=== PATIENT | female | born 1960 | race American Indian/Alaskan Native ===

== ENCOUNTER 2016-07-11 13:58 | Emergency (ER) | payer MEDICARE ==
[2016-07-11] MEDS ORDERED: MOTRIN ONE (15:04)
[2016-07-11] MEDS ORDERED: MOTRIN PO ONE (15:10)
[2016-07-11 18:11] VITALS: BP 140/88
[2016-07-11] MEDS ORDERED: TYLENOL/CODEINE PO ONE (18:13)
--- NOTE | 2016-07-11 18:13 | Emergency Department Report ---
HPI - General Chief Complaint: Fever Time Seen by Provider: 07/11/16 17:44 - HPI HPI: Patient is a 55-year-old female who presents to ED complaining of fever cough and congestion times the past 2 days. Patient states 2 days ago she began to feel congested. She admits brownish sputum productive cough. Patient states history of blood pressure and COPD. she states takes blood pressure medication but otherwise no other medical conditions. She states she has intermittent nausea but no vomiting. Patient denies abdominal pain, shortness of breath, headache, dizziness, diarrhea, vomiting. ED Past Medical Hx - Past Medical History Previous Medical History?: Yes Hx Hypertension: Yes - Surgical History Past Surgical History?: No - Social History Smoking Status: Current Every Day Smoker Substance Use Type: None - Medications Home Medications: Home Medications Medication Instructions Recorded Confirmed Last Taken Type Acetamin/Codeine 120-12Mg/5 ml 5 ml PO TID PRN #50 ml 07/11/16 Unknown Rx [Tylenol/Codeine] Azithromycin [Zithromax TAB] 500 mg PO QDAY #6 tablet 07/11/16 Unknown Rx Benzonatate [Tessalon Perles] 100 mg PO Q8HR #24 capsule 07/11/16 Unknown Rx Ibuprofen [Motrin] 400 mg PO Q8H PRN #30 tablet 07/11/16 Unknown Rx ED Review of Systems ROS: Stated complaint: FLU LIKE SYMPTOMS Other details as noted in HPI Constitutional: denies: chills, fever Eyes: denies: eye pain, eye discharge, vision change ENT: denies: ear pain, throat pain Respiratory: cough. denies: shortness of breath, SOB with exertion, SOB at rest , wheezing Cardiovascular: denies: chest pain, palpitations Endocrine: no symptoms reported Gastrointestinal: nausea. denies: abdominal pain, vomiting, diarrhea, constipation Genitourinary: denies: urgency, dysuria, discharge Musculoskeletal: denies: back pain, joint swelling, arthralgia Skin: denies: rash, lesions Neurological: denies: headache, weakness, numbness, paresthesias, confusion, abnormal gait Psychiatric: denies: anxiety, depression Hematological/Lymphatic: denies: easy bleeding, easy bruising Physical Exam - Physical Exam Vital Signs: Vital Signs 07/11/16 15:02 Temperature 103.1 F H Pulse Rate 90 Respiratory 20 Rate Blood Pressure 135/75 O2 Sat by Pulse 99 Oximetry Physical Exam: GENERAL: Alert and oriented x3, no apparent distress, Normal Gait, atraumatic. HEAD: Head is normocephalic and a-traumatic. EYES: Extra ocular muscles are intact. Pupils are equal, round, and reactive to light and accommodation. EARS: symetrical, atraumatic, non tender, ear canal clear and moderate cerumen, tympanic membrance non inflamed. gross auditory nml bilaterally. NOSE: Nose symetrical, Nontender,Nares appeared normal. MOUTH:Mouth is well hydrated and without lesions. Tonsils nonerythematous or swollen, Uvula midline, Tongue not elevated. Mucous membranes are moist. Posterior pharynx clear, no exudate or lesions. Patent airways. NECK: Supple. Non edematous, No carotid bruits. No lymphadenopathy or thyromegaly. LUNGS: Symetrical with respiration, No wheezing, no rales or crackles, adventitious lung sounds at lower lung bases bilaterally HEART: S1, S2 present, regular rate and rhythm without murmur, no rubs, no gallops. ABDOMEN: No organomegaly was noted,Positive bowel sounds, soft, and non- distended. . Nontender to palpation on all Quadrants, NO CVA tenderness. EXTREMITIES/MUSCULOSKELETAL: No cyanosis, clubbing, rash, lesions or edema. Full ROM bilaterally. UE/LE Pulses 2+ bilaterally. NEUROLOGIC: No focal Deficit, Cranial nerves II through XII are grossly intact. No loss of sensation, PSYCHIATRIC: Mood is congruent with affect, denies suicidal or homicidal ideations. SKIN: Warm and dry, No lesions, No ulceration or induration present. ED Course Vital Signs 07/11/16 15:02 Temperature 103.1 F H Pulse Rate 90 Respiratory 20 Rate Blood Pressure 135/75 O2 Sat by Pulse 99 Oximetry ED Medical Decision Making - Lab Data Result diagrams: 07/11/16 18:37 07/11/16 18:37 - Medical Decision Making 55-year-old presents with ED course: CBC, CMP, urinalysis, chest x-ray are ordered. Rapid influenza test done Patient received 10mL of Tylenol with Codeine. Patient received 800 mg of Motrin. Fever reduced. Chemistry lab called stating they ran out of Flu Kits and flu test could not be run. Urinalysis shows. CBC CMP within normal limits. Vital signs are stable. O2 sat 100%. Patient is in no respiratory distress. chest x-ray shows COPD with central peribronchial cuffing, patchiness segmental atelectasis in right lower lung Impressions: Minimal atelectasis, mild bronchitis. Discussed result findings with patient. Discussed with patient importance of hydration. To take daily vitamins. Discussed the patient to follow up with primary care physician. Discussed patient to be discharged home on Tessalon. For cough, Tylenol with codeine, azithromycin for infection prophylaxis and Motrin for pain. Stress the importance of follow-up. Referrals as given. Critical care attestation.: If time is entered above; I have spent that time in minutes in the direct care of this critically ill patient, excluding procedure time. ED Disposition Clinical Impression: Bronchitis, History of COPD Disposition: DISCHARGED TO HOME OR SELFCARE Is pt being admited?: No Does the pt Need Aspirin: No Condition: Stable Instructions: Acute Bronchitis (ED), Chronic Bronchitis (ED) Additional Instructions: Follow-up with her primary care physician. take [id number] Robitussin, Tylenol for cough and fever Prescriptions: Acetamin/Codeine 120-12Mg/5 ml [Tylenol/Codeine] 5 ml PO TID PRN #50 ml PRN Reason: Pain Azithromycin [Zithromax TAB] 500 mg PO QDAY #6 tablet Benzonatate [Tessalon Perles] 100 mg PO Q8HR #24 capsule Ibuprofen [Motrin] 400 mg PO Q8H PRN #30 tablet PRN Reason: Pain Referrals: PRIMARY CARE, [Primary Care Provider] - 3-5 Days REBEKAH ROBISON MD [Referring] - 3-5 Days RIKA VALENTE MD [Referring] - 3-5 Days [facility] [Outside] - 3-5 Days [facility] [Outside] - 3-5 Days [facility] [Outside] - 3-5 Days [facility] [Outside] - 3-5 Days Forms: Accompanied Note, Work/School Release Form(ED) Time of Disposition: 19:32
[2016-07-11 18:33] LABS: Bilirubin,Urine NEG (Negative); Blood,Urine SM (Negative); Ketones,Urine NEG (Negative); Leukocyte Esterase,Urine NEG (Negative); Mucus,Urine FEW /HPF; Nitrite,Urine NEG (Negative); Protein,Urine <15 mg/dL mg/dL (Negative); Urobilinogen,Urine < 2.0 mg/dL (<2.0)
[2016-07-11 19:00] LABS: Basophils % (Auto) 0.9 % (0.0-1.8); Eosinophils % (Auto) 0.9 % (0.0-4.3); Hematocrit 41.9 % (30.3-42.9); Hemoglobin 13.5 gm/dl (10.1-14.3); Mean Corpuscular HGB Conc 32 % (30-34); Mean Corpuscular Hemoglobin 26 pg (28-32); Mean Corpuscular Volume 81 fl (79-97); Platelet Count 183 K/mm3 (140-440); Red Blood Count 5.19 M/mm3 (3.65-5.03); Red Cell Distribution Width 13.6 % (13.2-15.2)
--- NOTE | 2016-07-11 19:02 | XRay Report ---
FINAL REPORT PROCEDURE: XR CHEST ROUTINE 2V TECHNIQUE: Two view PA lateral chest HISTORY: productivecough/fever COMPARISON: No prior studies are available for comparison. FINDINGS: Heart is not enlarged. COPD with central peribronchial cuffing. Patchy subsegmental atelectasis in the right lower lung zone. IMPRESSION: Possible mild bronchitis. Minimal atelectasis. No evidence of acute consolidative pneumonia or effusion.
[2016-07-11 19:08] LABS: Alanine Aminotransferase 21 units/L (7-56); Albumin 3.9 g/dL (3.9-5); Albumin/Globulin Ratio 1.2 %; Alkaline Phosphatase 61 units/L (35-129); Anion Gap 18 mmol/L; BUN/Creatinine Ratio 14.44; Bilirubin,Total 0.2 mg/dL (0.1-1.2); Blood Urea Nitrogen 13 mg/dL (7-17); Calcium 8.8 mg/dL (8.4-10.2); Carbon Dioxide 27 mmol/L (22-30); Chloride 95.6 mmol/L (98-107); Glucose 120 mg/dL (65-100); Potassium 4.1 mmol/L (3.6-5.0); Sodium 136 mmol/L (137-145); Total Protein 7.2 g/dL (6.3-8.2)
== END 2016-07-11 20:18 | disposition home or self-care (01) ==
LOC: ED 13:58
DX: J40 Bronchitis, not specified as acute or chronic (principal); J44.9 Chronic obstructive pulmonary disease, unspecified; I10 Essential (primary) hypertension; F17.200 Nicotine dependence, unspecified, uncomplicated
CPT/HCPCS: 36415; 71020; 80053; 81001; 84703; 85025; 87400

== ENCOUNTER 2017-12-17 17:00 | Emergency (ER) | payer MEDICARE ==
[2017-12-17] MEDS ORDERED: MOTRIN PO ONE (21:10)
--- NOTE | 2017-12-17 21:10 | Emergency Department Report ---
ED ENT HPI - General Chief complaint: Dental/Oral Stated complaint: SORE THROAT Time Seen by Provider: 12/17/17 21:05 Source: patient Mode of arrival: Ambulatory Limitations: No Limitations - Related Data Previous Rx's Medication Instructions Recorded Last Taken Type Acetamin/Codeine 120-12Mg/5 ml 5 ml PO TID PRN #50 ml 07/11/16 Unknown Rx [Tylenol/Codeine] Azithromycin [Zithromax TAB] 500 mg PO QDAY #6 tablet 07/11/16 Unknown Rx Benzonatate [Tessalon Perles] 100 mg PO Q8HR #24 capsule 07/11/16 Unknown Rx Ibuprofen [Motrin] 400 mg PO Q8H PRN #30 tablet 07/11/16 Unknown Rx Allergies Allergy/AdvReac Type Severity Reaction Status Date / Time tetracycline AdvReac Hives Verified 07/11/16 15:10 ED Dental HPI - General Chief complaint: Dental/Oral Stated complaint: SORE THROAT Time Seen by Provider: 12/17/17 21:05 Source: patient Mode of arrival: Ambulatory Limitations: No Limitations - Related Data Previous Rx's Medication Instructions Recorded Last Taken Type Acetamin/Codeine 120-12Mg/5 ml 5 ml PO TID PRN #50 ml 07/11/16 Unknown Rx [Tylenol/Codeine] Azithromycin [Zithromax TAB] 500 mg PO QDAY #6 tablet 07/11/16 Unknown Rx Benzonatate [Tessalon Perles] 100 mg PO Q8HR #24 capsule 07/11/16 Unknown Rx Ibuprofen [Motrin] 400 mg PO Q8H PRN #30 tablet 07/11/16 Unknown Rx Allergies Allergy/AdvReac Type Severity Reaction Status Date / Time tetracycline AdvReac Hives Verified 07/11/16 15:10 ED Review of Systems ROS: Stated complaint: SORE THROAT Other details as noted in HPI ED Past Medical Hx - Past Medical History Previous Medical History?: Yes Hx Hypertension: Yes - Surgical History Past Surgical History?: No - Social History Smoking Status: Current Every Day Smoker Substance Use Type: None - Medications Home Medications: Home Medications Medication Instructions Recorded Confirmed Last Taken Type Acetamin/Codeine 120-12Mg/5 ml 5 ml PO TID PRN #50 ml 07/11/16 Unknown Rx [Tylenol/Codeine] Azithromycin [Zithromax TAB] 500 mg PO QDAY #6 tablet 07/11/16 Unknown Rx Benzonatate [Tessalon Perles] 100 mg PO Q8HR #24 capsule 07/11/16 Unknown Rx Ibuprofen [Motrin] 400 mg PO Q8H PRN #30 tablet 07/11/16 Unknown Rx ED Physical Exam - General Limitations: No Limitations ED Course Vital Signs 12/17/17 17:20 Temperature 99.8 F H Pulse Rate 78 Respiratory 18 Rate Blood Pressure 133/81 O2 Sat by Pulse 100 Oximetry Critical care attestation.: If time is entered above; I have spent that time in minutes in the direct care of this critically ill patient, excluding procedure time. ED Disposition Condition: Stable Referrals: RAULITO MENDOZA MD [Other] - 3-5 Days
--- NOTE | 2017-12-17 22:16 | Emergency Department Report ---
Blank Doc - Documentation Documentation: Patient reports that she has swollen lymph nodes underneath her chin that is painful that started 2 days ago. She reports fever and chills and stated that she was an antibiotic clindamycin that she completed 2 days ago. She states that she was on it for dental abscess on the right side. Patient states she is not able to completely open her mouth. She also stated that she began to cough and congestion 5-6 days ago. She reports some shortness of breath but denies any chest pain. Pain is 6 out of 10 to the left side of her face and achy and worse with open mild. No medication taken. No alleviating factors. Patient says she feels like her jaw is locking up. Physical exam Oral exam with mouth moist, I am unable to visualize it away completely or the uvula because patient is unable to open her mouth fully. She has tenderness to palpate to her submental area with swelling and enlarged lymph nodes on the right side. Her tongue is normal. Lungs: Positive rhonchi which is cleared with coughing, minimal wheeze and to lung hayes. No increased work of breathing. CV. S1, S2. Regular rate and rhythm Assessment/plan Cough and congestion-patient to do tests x-ray and nebulizer treatment. Patient will be having a chest x-ray. Fever in adults-heart is on Motrin 800 mg by mouth Facial versus dental pain; patient will be started on antibiotic after blood work Lymphadenopathy-patient will be having CT scan of the neck with IV contrast to rule out PA versus loop leads angina versus severe dental abscess Will order CBC, CMP, blood cultures. Patient will be started on IV fluid, INT. Patient will be seen by attending physician and care of patient discussed with attending.
[2017-12-17] MEDS ORDERED: TORADOL IV ONE (22:18)
[2017-12-17] MEDS ORDERED: DECADRON IV ONE (22:18)
[2017-12-17] MEDS ORDERED: ZOFRAN IV ONE (22:18)
[2017-12-17] MEDS ORDERED: PROVENTIL IH ONE (22:18)
[2017-12-17] MEDS ORDERED: ATROVENT IH ONE (22:18)
[2017-12-17] MEDS ORDERED: NACL 0.9% 1000 ML 1,000 ML IV ONE (22:18)
--- NOTE | 2017-12-17 22:47 | XRay Report ---
FINAL REPORT PROCEDURE: XR CHEST ROUTINE 2V TECHNIQUE: PA and lateral chest radiographs were obtained. CPT 64543 HISTORY: cough, congestion, sob, fever COMPARISON: No prior studies are available for comparison. Prior chest x-ray 07/11/2016 FINDINGS: Heart: Upper normal size. Mediastinum/Vessels: Normal. Lungs/Pleural space: Normal. Bony thorax: No acute osseous abnormality. Other: IMPRESSION: Upper normal heart size. No acute abnormalities are identified..
--- NOTE | 2017-12-17 23:01 | Emergency Department Report ---
HPI - General Chief Complaint: Dental/Oral Time Seen by Provider: 12/17/17 21:05 - HPI HPI: 57-year-old female presents to the emergency department with complaint of swelling to the right lower portion of the jaw and the neck that has been going on for the past few days. The patient recently finished a 10 day course of clindamycin for a right molar or premolar dental abscess. A few days before she finished she started developing the swelling and she says that she developed some upper respiratory type symptoms. She complains of a productive cough. She originally was seen for the dental abscess at a urgent care clinic but the patient does say that she has a primary care physician. She denies any drooling or trismus, fever, nausea, vomiting. She has not taken anything else for her symptoms prior to presentation. She has a past medical history of hypertension. No recent travel or sick contacts at home. ED Past Medical Hx - Past Medical History Previous Medical History?: Yes Hx Hypertension: Yes - Surgical History Past Surgical History?: No - Social History Smoking Status: Current Every Day Smoker Substance Use Type: None - Medications Home Medications: Home Medications Medication Instructions Recorded Confirmed Last Taken Type Acetamin/Codeine 120-12Mg/5 ml 5 ml PO TID PRN #50 ml 07/11/16 Unknown Rx [Tylenol/Codeine] Azithromycin [Zithromax TAB] 500 mg PO QDAY #6 tablet 07/11/16 Unknown Rx Benzonatate [Tessalon Perles] 100 mg PO Q8HR #24 capsule 07/11/16 Unknown Rx Ibuprofen [Motrin] 400 mg PO Q8H PRN #30 tablet 07/11/16 Unknown Rx ED Review of Systems ROS: Stated complaint: SORE THROAT Other details as noted in HPI Comment: All other systems reviewed and negative Constitutional: denies: chills, fever Eyes: denies: eye pain, eye discharge, vision change ENT: dental pain. denies: ear pain Respiratory: cough. denies: shortness of breath Cardiovascular: denies: chest pain, palpitations Gastrointestinal: denies: abdominal pain, nausea, diarrhea Genitourinary: denies: urgency, dysuria, discharge Musculoskeletal: denies: back pain, joint swelling, arthralgia Skin: denies: rash, lesions Neurological: denies: headache, weakness, paresthesias Physical Exam - Physical Exam Vital Signs: Vital Signs 12/17/17 17:20 Temperature 99.8 F H Pulse Rate 78 Respiratory 18 Rate Blood Pressure 133/81 O2 Sat by Pulse 100 Oximetry Physical Exam: GENERAL: The patient is well-developed well-nourished. HENT: Normocephalic. Atraumatic. Patient has moist mucous membranes. Patient has some mild trismus. No drooling. Patient has very poor dentition and multiple dental caries. There is some tenderness palpation towards the right lower posterior mandible and gumline. EYES: Extraocular motions are intact. Pupils equal reactive to light bilaterally. NECK: Supple. Trachea is midline. There is right-sided submandibular and submental swelling. The area is mobile and slightly tender but no erythema or fluctuance. CHEST/LUNGS: Clear to auscultation. There is no respiratory distress noted. A productive sounding cough is heard intermittently during examination. HEART/CARDIOVASCULAR: Regular. There is no tachycardia. There is no murmur. ABDOMEN: Abdomen is soft, nontender. Patient has normal bowel sounds. There is no abdominal distention. SKIN: Skin is warm and dry. NEURO: The patient is awake, alert, and oriented. The patient is cooperative. The patient has no focal neurologic deficits. The patient has normal speech. MUSCULOSKELETAL: There is no tenderness or deformity. There is no limitation range of motion. There is no evidence of acute injury. ED Course Vital Signs 12/17/17 17:20 Temperature 99.8 F H Pulse Rate 78 Respiratory 18 Rate Blood Pressure 133/81 O2 Sat by Pulse 100 Oximetry - Consultations Consultation #1: 12/18/17 06:33 I spoke with the oral maxillofacial surgeon identification and records commander for [facility], Dr. Ferguson, who has been gracious to accept the patient for a transfer to [facility] ED with patient will be evaluated by her service. ED Medical Decision Making - Lab Data Result diagrams: 12/17/17 22:51 12/17/17 22:51 - Radiology Data Radiology results: report reviewed, image reviewed interpreted by me: Chest x-ray does not show any acute process. There are no pleural effusions, obvious pneumonia and there is no pneumothorax. EXAM: CT NECK W CON HISTORY: submental swelling, gum disease,fever. TECHNIQUE: Uneventful IV administration of iodinated contrast material with justifiable medical necessity in my professional opinion. Post-contrast volumetric CT through the neck. MPR. Overall image quality is mildly limited secondary to dental hardware. PRIORS: None. FINDINGS: Upper part of the airway: Patent. Oral cavity, oropharynx, hypopharynx and pharynx: Intact Thyroid: Homogenous. 9 mm nodule in the right lobe of thyroid. Recommend dedicated non urgent ultrasound for further evaluation. Lucency is noted about the right posterior mandibular molar (axial images 33-36) with discontinuity of the medial cortex and a small amount of adjacent periosteal reaction. Adjacent to this lucency and cortical irregularity, there is marked indistinctness of the soft tissue planes and swelling mild deviation of the tongue to the left is present. Major vessels: Intact Included central skull base, paranasal sinuses and orbits: No acute abnormality. Multilevel cervical degenerative changes. Cervical spine: No acute abnormality. Multilevel cervical degenerative changes. IMPRESSION: 1. Severe odontogenic disease including periapical lucency/discontinuity of the right mandibular molar with suggested subtle periosteal reaction and marked soft tissue swelling/phlegmon in the right distribution systems serviceperson space with thickening of the platysma, edema of the right submandibular gland and submental space. Several adjacent lymph nodes are likely reactive. There is no focal peripherally enhance, drainable abscess at this time. 2. Right superior pole 9 mm thyroid nodule. Non urgent ultrasound is recommended for further characterization. Transcribed By: DT Dictated By: OLVIN PALM DO Electronically Authenticated By: OLVIN PALM DO Signed Date/Time: 12/18/17 0158 - Medical Decision Making Patient presents to the emergency department with some trismus and right-sided neck and jaw pain and swelling. This is after the patient was artificially finished a 10 day course of clindamycin for a dental infection. This makes the patient failed outpatient treatment. Labs were mostly unremarkable. Vital signs stable but the patient does have a low-grade fever. CT of the neck with IV contrast shows a periosteal reaction of the right posterior molar, submandibular swelling, swelling/phlegmon in the right distribution systems serviceperson space and this includes the platysma, submandibular gland and submental space. My concern would be that this is the early stages of abscess formation and could progress to more concerning conditions such as Thierry's Angina or a intramuscular infection of the neck. Since we do not have ENT or oral maxillofacial here, I contacted [facility] and the patient has been accepted for transfer for evaluation in the emergency department by the oral maxillofacial service. She was given IV antibiotics prior to transfer. All the labs, imaging and plan for transfer were discussed with the patient understands and agrees. - Differential Diagnosis lymphadenopathy, strep pharyngitis, Parotitis, Thierry's angina Critical Care Time: No Critical care attestation.: If time is entered above; I have spent that time in minutes in the direct care of this critically ill patient, excluding procedure time. ED Disposition Clinical Impression: Dental infection, Neck swelling, Submandibular space infection Disposition: DC/TX-70 ANOTHER TYPE HLTHCARE Is pt being admited?: No Condition: Fair Referrals: RAULITO MENDOZA MD [Other] - 3-5 Days Time of Disposition: 06:38
[2017-12-17 23:10] LABS: Basophils # (Auto) 0.2 K/mm3 (0.0-0.1); Basophils % (Auto) 1.9 % (0.0-1.8); Eosinophils # (Auto) 0.1 K/mm3 (0.0-0.4); Eosinophils % (Auto) 1.5 % (0.0-4.3); Hematocrit 41.5 % (30.3-42.9); Lymphocytes # (Auto) 3.6 K/mm3 (1.2-5.4); Lymphocytes % (Auto) 39.5 % (13.4-35.0); Mean Corpuscular HGB Conc 34 % (30-34); Mean Corpuscular Hemoglobin 27 pg (28-32); Mean Corpuscular Volume 80 fl (79-97); Monocytes # (Auto) 0.6 K/mm3 (0.0-0.8); Platelet Count 259 K/mm3 (140-440); Red Blood Count 5.21 M/mm3 (3.65-5.03); Red Cell Distribution Width 13.6 % (13.2-15.2)
[2017-12-17 23:29] LABS: Alanine Aminotransferase 10 units/L (7-56); Albumin 4.1 g/dL (3.9-5); BUN/Creatinine Ratio 20; Blood Urea Nitrogen 14 mg/dL (7-17); Calcium 9.4 mg/dL (8.4-10.2); Hemolysis Index 1
--- NOTE | 2017-12-18 02:04 | Cat Scan Report ---
FINAL REPORT EXAM: CT NECK W CON HISTORY: submental swelling, gum disease,fever. TECHNIQUE: Uneventful IV administration of iodinated contrast material with justifiable medical necessity in my professional opinion. Post-contrast volumetric CT through the neck. MPR. Overall image quality is mildly limited secondary to dental hardware. PRIORS: None. FINDINGS: Upper part of the airway: Patent. Oral cavity, oropharynx, hypopharynx and pharynx: Intact Thyroid: Homogenous. 9 mm nodule in the right lobe of thyroid. Recommend dedicated non urgent ultrasound for further evaluation. Lucency is noted about the right posterior mandibular molar (axial images 33-36) with discontinuity of the medial cortex and a small amount of adjacent periosteal reaction. Adjacent to this lucency and cortical irregularity, there is marked indistinctness of the soft tissue planes and swelling mild deviation of the tongue to the left is present. Major vessels: Intact Included central skull base, paranasal sinuses and orbits: No acute abnormality. Multilevel cervical degenerative changes. Cervical spine: No acute abnormality. Multilevel cervical degenerative changes. IMPRESSION: 1. Severe odontogenic disease including periapical lucency/discontinuity of the right mandibular molar with suggested subtle periosteal reaction and marked soft tissue swelling/phlegmon in the right ash handler space with thickening of the platysma, edema of the right submandibular gland and submental space. Several adjacent lymph nodes are likely reactive. There is no focal peripherally enhance, drainable abscess at this time. 2. Right superior pole 9 mm thyroid nodule. Non urgent ultrasound is recommended for further characterization.
[2017-12-18] MEDS ORDERED: CLEOCIN 900 MG/50 mL 900 MG/50 ML BAG IV ONE (02:24)
[2017-12-18 05:42] VITALS: BP 124/60
== END 2017-12-18 06:05 | disposition other institution (70) ==
LOC: ED 17:00
DX: K04.7 Periapical abscess without sinus (principal); I10 Essential (primary) hypertension; F17.200 Nicotine dependence, unspecified, uncomplicated
CPT/HCPCS: 36415; 70491; 71046; 80053; 85025; 87040; 96365; 96375; 99285; J1100; J1885; J2405; J7030; Q9967

== ENCOUNTER 2020-12-25 03:00 | Emergency (ER) | payer MEDICARE ==
[2020-12-25 05:11] LABS: BUN/Creatinine Ratio 23; Blood Urea Nitrogen 18 mg/dL (7-17); Calcium 9.4 mg/dL (8.4-10.2); Hemolysis Index 1
[2020-12-25 05:43] LABS: Basophils # (Auto) 0.1 K/mm3 (0.0-0.1); Basophils % (Auto) 0.9 % (0.0-1.8); Eosinophils # (Auto) 0.1 K/mm3 (0.0-0.4); Eosinophils % (Auto) 0.8 % (0.0-4.3); Hematocrit 41.3 % (30.3-42.9); Hemoglobin 13.8 gm/dl (10.1-14.3); Lymphocytes # (Auto) 2.3 K/mm3 (1.2-5.4); Lymphocytes % (Auto) 33.7 % (13.4-35.0); Mean Corpuscular HGB Conc 33 % (30-34); Mean Corpuscular Volume 83 fl (79-97); Monocytes # (Auto) 0.5 K/mm3 (0.0-0.8); Monocytes % (Auto) 6.6 % (0.0-7.3); Platelet Count 253 K/mm3 (140-440); Red Blood Count 4.97 M/mm3 (3.65-5.03); Red Cell Distribution Width 14.4 % (13.2-15.2)
[2020-12-25 06:23] LABS: Bilirubin,Urine NEG (Negative); Blood,Urine SM (Negative); Color,Urine Yellow (Yellow); Mucus,Urine 1+ /HPF
[2020-12-25 06:33] LABS: Amphetamine Screen,Urine PRESUMPTIVE NEGATIVE; Benzodiazepines Screen,Urine PRESUMPTIVE NEGATIVE; Cannabinoid Screen,Urine PRESUMPTIVE POSITIVE; Cocaine Screen,Urine PRESUMPTIVE POSITIVE; Methadone Screen,Urine PRESUMPTIVE NEGATIVE; Opiate Screen,Urine PRESUMPTIVE NEGATIVE
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
[2020-12-25] MEDS ORDERED: LIDOCAINE-MPF (1%) 10 MG/1 ML VIAL 5 ML INFILTRATI ONE (11:43)
[2020-12-25] MEDS ORDERED: AZITHROMYCIN 250 MG TAB PO ONE (11:44)
[2020-12-25 12:48] VITALS: BP 150/84
== END 2020-12-25 12:50 | disposition home or self-care (01) ==
LOC: ED 03:00
DX: F25.9 Schizoaffective disorder, unspecified (principal); F19.10 Other psychoactive substance abuse, uncomplicated; I10 Essential (primary) hypertension; M19.90 Unspecified osteoarthritis, unspecified site; F32.9 Major depressive disorder, single episode, unspecified; Z88.1 Allergy status to other antibiotic agents; Z79.899 Other long term (current) drug therapy
CPT/HCPCS: 36415; 80048; 80307; 81001; 85025; 96372; 99283; J0696; 80320; G0480